=== PATIENT | female | born 1960 | race Caucasian/White ===

== ENCOUNTER 2021-08-01 17:06 | Emergency (ER) | payer BC ==
[~2021-08-01] VITALS: Ht 162.6 cm; Wt 62.6 kg
[2021-08-01] MEDS ORDERED: APRESOLINE 10MG10 MG (17:44)
[2021-08-01] MEDS ORDERED: COZAAR25 MG (17:44)
== END 2021-08-01 19:49 | disposition home or self-care (01) ==
LOC: ER 17:06
DX: R20.0 Anesthesia of skin (principal); I10 Essential (primary) hypertension